=== PATIENT | female | born 1995 | race African-American/Black ===

== ENCOUNTER 2021-06-13 07:01 | Emergency (ER) | payer OTHER ==
[~2021-06-13] VITALS: Ht 180.3 cm; Wt 170.9 kg
[~2021-06-13 07:01] MED LIST: DEPRESSION MED; IBUPROFEN 800800 M1 PO; KEPPRA 500 MG500 M1 PO; SLEEPING PILL
[2021-06-13] MEDS ORDERED: TEGRETOL200 MG PO ×2 (07:15→07:24)
[2021-06-13 08:21] VITALS: BP 117/70
== END 2021-06-13 08:23 | disposition home or self-care (01) ==
LOC: M.ERS 07:01
DX: G40.909 Epilepsy, unspecified, not intractable, without status epilepticus (principal); R07.89 Other chest pain; Z79.899 Other long term (current) drug therapy

== ENCOUNTER 2021-10-03 18:01 | Emergency (ER) | payer OTHER ==
[~2021-10-03] VITALS: Ht 154.9 cm; Wt 154.2 kg
[~2021-10-03 18:01] MED LIST changes: +TEGRETOL200 MG PO
[2021-10-03 18:35] LABS: URINE BILIRUBIN NEGATIVE (Negative); URINE BLOOD TRACE (Negative); URINE CLARITY CLEAR; URINE COLOR YELLOW; URINE GLUCOSE-RANDOM NEGATIVE (Negative); URINE KETONES NEGATIVE (Negative); URINE LEUKOCYTES-REFLEX NEGATIVE (Negative); URINE NITRITE-REFLEX NEGATIVE (Negative); URINE PROTEIN NEGATIVE (Negative); URINE SPECIFIC GRAVITY 1.015 (1.005-1.030); URINE UROBILINOGEN 0.2 E.U./dl (0.2-1.0)
[2021-10-03 18:42] LABS: SQUAMOUS 0-3 Few /LPF (0-3)
[2021-10-03 18:43] LABS: BACTERIA-REFLEX None Seen /HPF (None Seen); CASTS None Seen /LPF (None Seen); CRYSTALS None Seen /LPF (None Seen); URINE RBC 0-2 Rare /HPF (0-2); URINE WBC-REFLEX None Seen /HPF (0-5)
[2021-10-03 19:19] LABS: ABSOLUTE BASOPHILS 0.1 thou/uL (0.0-0.2); ABSOLUTE EOSINOPHILS 0.1 thou/uL (0.0-0.7); ABSOLUTE MONOCYTES 0.5 thou/uL (0.0-1.2); ABSOLUTE NEUTROPHILS 4.3 thou/uL (1.6-8.1); BASOPHILS 1.1 %; EOSINOPHILS 1.8 %; HEMATOCRIT 33.5 % (37.0-47.0); LYMPHOCYTES 36.7 %; MCH 26.2 pg (26.0-34.0); MCHC 32.7 g/dL (28.0-37.0); MCV 80.2 fL (80.0-100.0); MONOCYTES 6.7 %; MPV 7.4 fl. (7.2-11.1); NUCLEATED RBCS 0 /100WBC; PLATELET COUNT* 540 thou/uL (150-400); POLYS 53.7 %; RBC 4.18 mil/uL (4.20-5.00); RDW-CV 17.8 % (10.5-14.5); WBC 8.1 thou/uL (4.0-11.0)
[2021-10-03 19:30] LABS: CALCIUM 8.4 mg/dL (8.5-10.1); CREATININE 0.8 mg/dL (0.6-1.3); POTASSIUM 4.2 mmol/L (3.5-5.1)
[2021-10-03 19:34] LABS: ALBUMIN 3.3 g/dL (3.4-5.0); TOTAL BILIRUBIN 0.2 mg/dL (<0.1-1.0); TOTAL PROTEIN 7.5 g/dL (6.4-8.2)
[2021-10-03] MEDS ORDERED: BENTYL 10 MG CA10 M1 PO (20:12)
[2021-10-03] MEDS ORDERED: ZOFRAN ODT4 MG PO (20:12)
[2021-10-03 20:17] VITALS: BP 148/83
--- NOTE | 2021-10-04 14:09 | EKG ---
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
== END 2021-10-03 20:17 | disposition home or self-care (01) ==
LOC: M.ERS 18:01
PROVIDERS: Student in an Organized Health Care Education/Training Program
DX: R10.32 Left lower quadrant pain (principal)